=== PATIENT | female | born 1995 | race Caucasian/White ===

== ENCOUNTER 2017-05-03 10:27 | Emergency (ER) | payer OTHER ==
[2017-05-03] MEDS ORDERED: SODIUM CHLORIDE 0.9% 1,000 ML IV STA (10:46)
--- NOTE | 2017-05-03 11:02 | ED ---
Abdominal Pain HPI - General Chief Complaint: Abdominal Pain Stated Complaint: ABDOMINAL PAIN Time Seen by Provider: 05/03/17 10:39 Source: patient, RN notes reviewed Mode of arrival: ambulatory Limitations: no limitations - History of Present Illness Initial Comments: This is a 22-year-old female who presents with complaints of 3 days of abdominal pain. Sharp in nature 7/10 severity with some associated nausea. She states it's epigastric right and left upper quadrant and right lower quadrant also radiates to her back. She has any fevers chills sweats nausea vomiting other than nausea mentioned above. She denies any chance of she states her last menstrual period was April 19 and she did have a negative test yesterday. She has no dysuria no hematuria. No cough or phlegm production. The pain sometimes gets worse with movement and deep breathing. MD Complaint: abdominal pain - Related Data Home Medications Medication Instructions Recorded Confirmed Norgestimate-Ethinyl Estradiol 1 tab PO DAILY 05/03/17 05/03/17 [Ortho Tri-Cyclen 28 Tablet] Previous Rx's Medication Instructions Recorded Ketorolac [Toradol] 10 mg PO Q6HR #20 tab 05/03/17 Allergies Allergy/AdvReac Type Severity Reaction Status Date / Time No Known Allergies Allergy Verified 05/03/17 10:52 Review of Systems ROS Statement: Those systems with pertinent positive or pertinent negative responses have been documented in the HPI. ROS Other: All systems not noted in ROS Statement are negative. Past Medical History Past Medical History: No Reported History History of Any Multi-Drug Resistant Organisms: None Reported Past Surgical History: No Surgical Hx Reported Smoking Status: Never smoker Past Alcohol Use History: None Reported Past Drug Use History: None Reported General Exam - General Exam Comments Initial Comments: This is a well-developed well-nourished awake alert oriented 3 female Limitations: no limitations General appearance: alert, in no apparent distress Head exam: Present: atraumatic, normocephalic, normal inspection Eye exam: Present: normal appearance, PERRL, EOMI. Absent: scleral icterus, conjunctival injection, periorbital swelling ENT exam: Present: normal exam, mucous membranes moist Neck exam: Present: normal inspection. Absent: tenderness, meningismus, lymphadenopathy Respiratory exam: Present: normal lung sounds bilaterally. Absent: respiratory distress, wheezes, rales, rhonchi, stridor Cardiovascular Exam: Present: regular rate, normal rhythm, normal heart sounds. Absent: systolic murmur, diastolic murmur, rubs, gallop, clicks GI/Abdominal exam: Present: soft, tenderness (Right lower quadrant tenderness palpation no guarding or rebound however mild right upper quadrant epigastric tenderness palpation with no guarding or rebound.), normal bowel sounds. Absent : distended, guarding, rebound, rigid Rectal exam: Present: deferred Extremities exam: Present: normal inspection, full ROM, normal capillary refill. Absent: tenderness, pedal edema, joint swelling, calf tenderness Back exam: Present: normal inspection, CVA tenderness (R) (Mild right CVA tenderness to palpation/percussion) Neurological exam: Present: alert, oriented X3, CN II-XII intact Psychiatric exam: Present: normal affect, normal mood Skin exam: Present: warm, dry, intact, normal color. Absent: rash Course Vital Signs 05/03/17 05/03/17 10:36 12:15 Temperature 98.1 F 97.7 F Pulse Rate 79 85 Respiratory 18 16 Rate Blood Pressure 135/81 114/80 O2 Sat by Pulse 99 99 Oximetry - Reevaluation(s) Reevaluation #1: 05/03/17 12:46 Patient lab work is negative ultrasound is going to be ordered. She still has significant right lower quadrant pain more in the pelvis area however as opposed [place] point Medical Decision Making - Medical Decision Making The patient is showing improved at this time the presentation is consistent with a history of ovarian cyst patient will be discharged with follow-up with her doctor return when necessary she'll be placed on anti-inflammatory pain medication. - Lab Data Result diagrams: 05/03/17 11:00 05/03/17 11:00 Lab Results 05/03/17 05/03/17 05/03/17 Range/Units 10:58 10:58 11:00 WBC (4.0-11.0) k/uL RBC (3.80-5.40) m/uL Hgb (11.4-16.0) gm/dL Hct (34.0-46.0) % MCV (80.0-100.0) fL MCH (25.0-35.0) pg MCHC (31.0-37.0) g/dL RDW (11.5-15.5) % Plt Count (150-450) k/uL Neutrophils % % Lymphocytes % % Monocytes % % Eosinophils % % Basophils % % Neutrophils # (1.3-7.7) k/uL Lymphocytes # (1.0-4.8) k/uL Monocytes # (0-1.0) k/uL Eosinophils # (0-0.7) k/uL Basophils # (0-0.2) k/uL Manual Slide Review RBC Morphology Sodium 140 (137-145) mmol/L Potassium 4.3 (3.5-5.1) mmol/L Chloride 107 (98-107) mmol/L Carbon Dioxide 25 (22-30) mmol/L Anion Gap 8 mmol/L BUN 6 L (7-17) mg/dL Creatinine 0.73 (0.52-1.04) mg/dL Est GFR (MDRD) Af Amer >60 (>60 ml/min/1.73 sqM) Est GFR (MDRD) Non-Af >60 (>60 ml/min/1.73 sqM) Glucose 80 (74-99) mg/dL Calcium 9.5 (8.4-10.2) mg/dL Total Bilirubin 0.5 (0.2-1.3) mg/dL AST 21 (14-36) U/L ALT 30 (9-52) U/L Alkaline Phosphatase 43 (38-126) U/L Total Protein 7.1 (6.3-8.2) g/dL Albumin 4.3 (3.5-5.0) g/dL Amylase 39 (30-110) U/L Lipase 90 (23-300) U/L Urine Color Yellow Urine Appearance Clear (Clear) Urine pH 6.5 (5.0-8.0) Ur Specific [place] 1.009 (1.001-1.035) Urine Protein Negative (Negative) Urine Glucose (UA) Negative (Negative) Urine Ketones Negative (Negative) Urine Blood Trace H (Negative) Urine Nitrite Negative (Negative) Urine Bilirubin Negative (Negative) Urine Urobilinogen <2.0 (<2.0) mg/dL Ur Leukocyte Esterase Negative (Negative) Urine RBC <1 (0-5) /hpf Urine WBC 1 (0-5) /hpf Ur Squamous Epith Cells 3 (0-4) /hpf Urine Mucus Rare H (None) /hpf Urine HCG, Qual Not Detected (Not Detectd) 08/09/17 Range/Units 11:00 WBC 6.3 (4.0-11.0) k/uL RBC 4.40 (3.80-5.40) m/uL Hgb 14.8 (11.4-16.0) gm/dL Hct 41.3 (34.0-46.0) % MCV 93.9 (80.0-100.0) fL MCH 33.6 (25.0-35.0) pg MCHC 35.8 (31.0-37.0) g/dL RDW 12.3 (11.5-15.5) % Plt Count 265 (150-450) k/uL Neutrophils % 46 % Lymphocytes % 27 % Monocytes % 4 % Eosinophils % 20 % Basophils % 1 % Neutrophils # 2.9 (1.3-7.7) k/uL Lymphocytes # 1.7 (1.0-4.8) k/uL Monocytes # 0.3 (0-1.0) k/uL Eosinophils # 1.3 H (0-0.7) k/uL Basophils # 0.0 (0-0.2) k/uL Manual Slide Review Performed RBC Morphology Normal Sodium (137-145) mmol/L Potassium (3.5-5.1) mmol/L Chloride (98-107) mmol/L Carbon Dioxide (22-30) mmol/L Anion Gap mmol/L BUN (7-17) mg/dL Creatinine (0.52-1.04) mg/dL Est GFR (MDRD) Af Amer (>60 ml/min/1.73 sqM) Est GFR (MDRD) Non-Af (>60 ml/min/1.73 sqM) Glucose (74-99) mg/dL Calcium (8.4-10.2) mg/dL Total Bilirubin (0.2-1.3) mg/dL AST (14-36) U/L ALT (9-52) U/L Alkaline Phosphatase (38-126) U/L Total Protein (6.3-8.2) g/dL Albumin (3.5-5.0) g/dL Amylase (30-110) U/L Lipase (23-300) U/L Urine Color Urine Appearance (Clear) Urine pH (5.0-8.0) Ur Specific [place] (1.001-1.035) Urine Protein (Negative) Urine Glucose (UA) (Negative) Urine Ketones (Negative) Urine Blood (Negative) Urine Nitrite (Negative) Urine Bilirubin (Negative) Urine Urobilinogen (<2.0) mg/dL Ur Leukocyte Esterase (Negative) Urine RBC (0-5) /hpf Urine WBC (0-5) /hpf Ur Squamous Epith Cells (0-4) /hpf Urine Mucus (None) /hpf Urine HCG, Qual (Not Detectd) - Radiology Data Radiology results: report reviewed (I did review the imaging and reports x-ray shows no definite acute findings ultrasound shows normal appendix and some fluid in the right pelvis. The ovaries do appear to be within normal limits), image reviewed Disposition Clinical Impression: Abdominal pain, Ruptured ovarian cyst Disposition: HOME SELF-CARE Condition: Good Instructions: Abdominal Pain (ED), Ovarian Cyst (ED) Prescriptions: Ketorolac [Toradol] 10 mg PO Q6HR #20 tab Referrals: Hiram Pete DO [Primary Care Provider] - 1-2 days
[2017-05-03 11:15] LABS: Basophils % (A) 1 %; CH 32.9; CHCM 35.2; Eosinophils # (A) 1.3 k/uL (0-0.7); Eosinophils % (A) 20 %; HCT 41.3 % (34.0-46.0); HDW 2.61; HGB 14.8 gm/dL (11.4-16.0); Luc # (Auto) 0.12; Luc % (Auto) 2; Lymphocytes # (A) 1.7 k/uL (1.0-4.8); Lymphocytes % (A) 27 %; MCH 33.6 pg (25.0-35.0); MCHC 35.8 g/dL (31.0-37.0); MCV 93.9 fL (80.0-100.0); Mean Platelet Volume 7.2; Monocytes # (A) 0.3 k/uL (0-1.0); Monocytes % (A) 4 %; Neutrophils # (A) 2.9 k/uL (1.3-7.7); Neutrophils % (A) 46 %; RDW 12.3 % (11.5-15.5); WBC 6.3 k/uL (4.0-11.0); WBC (Perox) 6.25
[2017-05-03 11:41] LABS: ALT 30 U/L (9-52); AST 21 U/L (14-36); Alkaline Phosphatase 43 U/L (38-126); Amylase 39 U/L (30-110); Anion Gap 8 mmol/L; Blood Urea Nitrogen 6 mg/dL (7-17); Calcium 9.5 mg/dL (8.4-10.2); Carbon Dioxide 25 mmol/L (22-30); Chloride 107 mmol/L (98-107); Glucose 80 mg/dL (74-99); Non-African American GFR(MDRD) >60 (>60 ml/min/1.73 sqM); Potassium 4.3 mmol/L (3.5-5.1); Sodium 140 mmol/L (137-145); Total Bilirubin 0.5 mg/dL (0.2-1.3); Total Protein 7.1 g/dL (6.3-8.2)
[2017-05-03 11:53] LABS: Manual Review Performed
[2017-05-03 11:54] LABS: RBC Morphology Normal
[2017-05-03 12:02] LABS: Appearance,Urine Clear (Clear); Bilirubin,Urine Negative (Negative); Glucose,Urine (UA) Negative (Negative); Ketones,Urine Negative (Negative); Leukocyte Esterase,Urine Negative (Negative); Mucus,Urine Rare /hpf; Nitrite,Urine Negative (Negative); PH, Urine 6.5 (5.0-8.0); Particle Count 2968; Protein,Urine Negative (Negative); RBC,Urine <1 /hpf (0-5); Specific Gravity,Urine 1.009 (1.001-1.035); Squamous Epithelial Cell,Urine 3 /hpf (0-4); UA Billing (MACRO vs. MICRO) MICRO; Urobilinogen,Urine <2.0 mg/dL (<2.0); WBC,Urine 1 /hpf (0-5)
--- NOTE | 2017-05-03 12:06 | XR ---
EXAMINATION TYPE: XR KUB DATE OF EXAM: 05/03/2017 CLINICAL DATA: 22 year-old female with right-sided abdominal pain, PHH COMPARISON: None FINDINGS: Lung bases are clear. No evidence for free intraperitoneal air. No dilated small bowel or air-fluid levels. Scattered air and stool seen throughout the colon extendi ng distally into the rectum. Mild to moderate stool burden. No suspicious calcifications identified. IMPRESSION: Mild to moderate stool burden. No evidence of bowel obstruction or free intraperitoneal air.
[2017-05-03 12:16] VITALS: RESP 16
[2017-05-03] MEDS ORDERED: KETOROLAC 30 MG/ML 1 ML VIAL IVP STA (12:43)
--- NOTE | 2017-05-03 14:28 | US ---
EXAMINATION TYPE: US abdomen APPY DATE OF EXAM: 05/03/2017 COMPARISON: NONE CLINICAL HISTORY: 22 year-old female with Pain. RLQ pain since Monday. TECHNIQUE: Multiple sonographic images of the right lower quadrant were obtained with graded compress ion. FINDINGS: APPENDIX AP Diameter (normal < 6mm): 4.6 mm Measured outer wall to outer wall. Is the appendix seen in its entirety from the proximal cecum to distal end: Compressible tubular str ucture seen in the RLQ Is the appendix compressible: yes Does the appendix wall appear hypervascular: no Is an appendicolith present: no Is there inflammatory changes or free fluid present: no IMPRESSION: Normal sonographic appearance to the appendix. No evidence for acute appendicitis.
--- NOTE | 2017-05-03 14:31 | US ---
EXAMINATION TYPE: US transvaginal. Plus Dopplers DATE OF EXAM: 05/03/2017 COMPARISON: NONE CLINICAL HISTORY: 18-year-old female with Pain. RLQ pain since Monday Date of LMP: 04/19/2017, G0 TECHNIQUE: Transvaginal (TV). Color Doppler and spectral waveform analysis of the ovarian arteries a nd veins. Findings: Uterus: Anteverted measuring 6.5 x 4.1 x 3.1 cm Endometrial Stripe: 0.2 cm Right Ovary: 2.3 x 1.4 x 1.2 cm with follicular changes. Left Ovary: 2.4 x 1.5 x 1.0 cm with follicular changes. There is satisfactory arterial and venous flow seen on both sides. Small amount of right adnexal and cul-de-sac fluid. IMPRESSION: 1. No sonographic evidence for ovarian torsion. 2. Small amount of right adnexal and cul-de-sac free fluid likely physiologic.
[2017-05-03 15:31] VITALS: BP 108/64; PULSE 86; TEMP 98
== END 2017-05-03 15:25 | disposition home or self-care (01) ==
LOC: EC 10:27
DX: N83.209 Unspecified ovarian cyst, unspecified side (principal); R10.11 Right upper quadrant pain; R10.13 Epigastric pain; R11.0 Nausea; Z79.3 Long term (current) use of hormonal contraceptives
CPT/HCPCS: 36415; 80053; 82150; 83690; 85025; 81001; 81025; 74000; 93975; 76705; 76830; 99284; 96374; 96361 ×4; J1885

== ENCOUNTER → 2020-10-30 | Outpatient (CLI) | payer OTHER ==
--- NOTE | 2020-10-30 15:20 | US ---
EXAMINATION TYPE: Transabdominal DATE OF EXAM: 10/30/2020 3:05 PM COMPARISON: NONE CLINICAL HISTORY: Z36 Confirm dates. EXAM PERFORMED: Transabdominal (TA) EXAM MEASUREMENTS: GESTATIONAL AGE / DATING Physician Established: (12 weeks/0 days) EDC: 05/14/2021 Dates by LMP: (12 weeks/0 days) EDC: 05/14/2021 Dates by First Scan: This is 1st scan Dates by Current Scan for: (12 weeks/2 days) EDC: 05/12/2021 MATERNAL ANATOMY Uterus: 14.3 x 6.9 x 9.4cm Right Ovary: 2.8 x 1.6 x 2.2cm Left Ovary: 2.9 x 1.7 x 1.7cm Post CDS / Adnexa: wnl Presence of free fluid: no Presence of corpus luteal cyst: not seen Presence of subchorionic bleed: no GESTATION / SURVEY CRL: 5.8cm (12 weeks/2 days) Yolk Sac (normal less than 6mm): not seen Heart Rate: 160 bpm Rhythm: Normal IUP: Viable IUP Date of LMP: 08/07/2020 IMPRESSION: Single viable intrauterine noted.
== END | disposition home or self-care (01) ==
LOC: RADUSWWP 14:43
PROVIDERS: ATTEND Obstetrics & Gynecology
DX: Z36.87 Encounter for antenatal screening for uncertain dates (principal)
CPT/HCPCS: 76801

== ENCOUNTER 2021-05-12 06:00 | Inpatient (IN) | payer OTHER ==
--- NOTE | 2021-05-11 20:24 | P.HPOB ---
History of Present Illness H&P Date: 05/11/21 Chief Complaint: Induction of labor This is a 26 yo. female, 1, para 0, with an estimated date of confinement of 05/14/2021, estimated gestational age of 39-5/7 weeks, who presents for induction of labor. She is feeling irregular contractions and pressure. Her has been relatively uncomplicated. labs: Hepatitis B surface antigen-neg RPR-NR Rubella-immune Blood type-O+ Antibody screen-neg HIV-NR Hemoglobin-13.2 Random glucose-69 1 hr. 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 Social Hx: . Works in an Adult [employer]. Review of Systems Constitutional: Denies chills, Denies fever Eyes: denies blurred vision, denies pain Ears, nose, mouth and throat: Denies sore throat Cardiovascular: Denies chest pain, Denies shortness of breath Respiratory: Denies cough Gastrointestinal: Reports abdominal pain (irregular contractions), Denies diarrhea, Denies nausea, Denies vomiting Genitourinary: Reports pelvic pain, Reports Musculoskeletal: Reports low back pain Integumentary: Denies pruritus, Denies rash Neurological: Reports headaches (chronic), Denies numbness, Denies weakness Psychiatric: Denies anxiety, Denies depression Past Medical History Past Medical History: Asthma Additional Past Medical History / Comment(s): Gastritis History of Any Multi-Drug Resistant Organisms: None Reported Past Surgical History: No Surgical Hx Reported Additional Past Surgical History / Comment(s): [place] teeth Past Anesthesia/Blood Transfusion Reactions: No Reported Reaction Past Psychological History: No Psychological Hx Reported Smoking Status: Never smoker Past Alcohol Use History: None Reported Past Drug Use History: None Reported - Past Family History Father Family Medical History: Myocardial Infarction ([place]) Medications and Allergies Home Medications Medication Instructions Recorded Confirmed Type Albuterol Sulfate [Proair Hfa] 1 - 2 puff INHALATION Q6HR PRN 05/11/21 05/11/21 History Pnv No.95/Ferrous Fum/Folic AC 05/11/21 History [ Multivitamin Tablet] Allergies Allergy/AdvReac Type Severity Reaction Status Date / Time No Known Allergies Allergy Verified 05/03/17 10:52 Exam Osteopathic Statement: *. No significant issues noted on an osteopathic structural exam other than those noted in the History and Physical/Consult. HEENT: within normal limits Heart: regular rate and rhythm Lungs: clear to auscultation bilaterally Abdomen: Cervix: 2.5-3 cm/70%/-2 heart tones: 140's by doppler Extremities: neg. Peña's Assessment and Plan (1) 39 weeks gestation of Status: Acute Code(s): Z3A.39 - 39 WEEKS GESTATION OF SNOMED Code(s): 13894636 Plan: Admission for oxytocin induction of labor. Expectant management. Epidural anesthesia if desired.
[2021-05-12] MEDS ORDERED: LIDOCAINE 1% (10MG/ML) FOR IV START INTRADERMA PRN (06:09)
[2021-05-12] MEDS ORDERED: LIDOCAINE 0.5% (PF) 5 MG/ML (50 ML SDV) SQ PRN (06:09)
[2021-05-12] MEDS ORDERED: OXYTOCIN 30 UNITS/500 ML NS 30 UNIT in SALINE 1 500ML.BAG IV SCH ×2 (06:09→17:45)
[2021-05-12] MEDS ORDERED: TERBUTALINE 1 MG/ML VIAL SQ PRN (06:09)
[2021-05-12] MEDS ORDERED: CARBOPROST TROMETHAMINE 250 MCG/ML 1 ML AMP IM PRN (06:09)
[2021-05-12] MEDS ORDERED: METHYLERGONOVINE 0.2 MG/ML 1 ML AMP IM PRN (06:09)
[2021-05-12] MEDS ORDERED: OXYTOCIN 10 UNIT/ML 1 ML VIAL IM PRN (06:09)
[2021-05-12] MEDS: LACTATED RINGERS 1,000 ML IV SCH ×2 (06:15→11:33)
[2021-05-12 06:45] LABS: Basophils % (A) 0 %; Eosinophils # (A) 0.2 k/uL (0-0.7); Eosinophils % (A) 3 %; HCT 36.4 % (34.0-46.0); HGB 12.4 gm/dL (11.4-16.0); Lymphocytes % (A) 24 %; MCH 31.8 pg (25.0-35.0); MCHC 33.9 g/dL (31.0-37.0); MCV 93.8 fL (80.0-100.0); Mean Platelet Volume 9.7; Monocytes # (A) 0.5 k/uL (0-1.0); Monocytes % (A) 6 %; Neutrophils # (A) 5.7 k/uL (1.3-7.7); Neutrophils % (A) 65 %; Platelet Count 240 k/uL (150-450); Poikilocytosis Slight; RBC 3.89 m/uL (3.80-5.40); RDW 14.4 % (11.5-15.5); WBC 8.7 k/uL (3.8-10.6)
[2021-05-12] MEDS: BUTORPHANOL 1 MG/ML 1 ML VIAL IV PRN ×2 (11:30→13:34)
--- NOTE | 2021-05-12 17:20 | P.PROBDLV ---
Vaginal Delivery Note - . Vaginal Delivery Note: The patient progressed to complete dilation after oxytocin induction of labor and artificial rupture of membranes with thin meconium noted. She did receive 2 doses of Stadol while in labor. Once reaching complete, she began pushing. Infant's head came to a crown. With one further push, the 's head delivered across the perineum and a left occiput anterior lie followed by the posterior arm with a nuchal hand. The anterior shoulder then delivered shortly afterwards. Nose and mouth were bulb suctioned. Cord was clamped and cut and was handed to awaiting nursing staff and pediatric's care. A viable male infant is noted with scores of 8 at 1 minute and 9 at 5 minutes and weight of 8 lbs. 9 oz. Placenta delivered shortly thereafter, intact, with a three-vessel cord. Uterus contracted well after oxytocin was given and uterine massage was carried out. Inspection of the perineum revealed a second-degree perineal laceration with a slight extension onto the vaginal wall on the left and right side. These areas were anesthetized with 1% lidocaine and then sutured with 30 and 2-0 Vicryl suture in the usual multilayer fashion. Estimated blood loss is approximately 200 mL's. Both mother and are in stable condition.
[2021-05-12] MEDS ORDERED: ALBUTEROL NEBULIZED 2.5 MG/3 ML INHALATION PRN (17:35)
[2021-05-12] MEDS ORDERED: diphenhydrAMINE 50 MG CAP PO PRN (17:35)
[2021-05-12] MEDS ORDERED: SIMETHICONE 80 MG CHEWABLE PO PRN (17:35)
[2021-05-12] MEDS ORDERED: LANOLIN CREAM 5 GM TUBE TOPICAL PRN (17:35)
[2021-05-12] MEDS ORDERED: BENZOCAINE/MENTHOL SPRAY 1 GM/SPRAY AEROSOL TOPICAL PRN (17:35)
[2021-05-12] MEDS ORDERED: ZOLPIDEM 5 MG TAB PO PRN (17:35)
[2021-05-12] MEDS ORDERED: diphenhydrAMINE 25 MG CAP PO PRN (17:35)
[2021-05-12] MEDS ORDERED: HYDROCORTISONE 2.5% RECTAL CREAM 30 GM TUBE RECTAL PRN (17:35)
[2021-05-12] MEDS ORDERED: diphenhydrAMINE 50 MG/ML 1 ML VIAL IVP PRN ×2 (17:35)
[2021-05-12] MEDS: IBUPROFEN 600 MG TAB PO PRN (18:03)
[2021-05-12] MEDS: SENNOSIDES-DOCUSATE SODIUM 1 EACH TAB PO SCH (20:07)
[2021-05-12] MEDS: ACETAMINOPHEN TAB 325 MG TAB PO PRN (20:07)
[2021-05-13] MEDS: IBUPROFEN 600 MG TAB PO PRN ×3 (02:00→14:25)
[2021-05-13] MEDS: SENNOSIDES-DOCUSATE SODIUM 1 EACH TAB PO SCH (07:55)
[2021-05-13 08:10] VITALS: RESP 17
[2021-05-13 08:13] LABS: Basophils % (A) 0 %; Eosinophils # (A) 0.1 k/uL (0-0.7); Eosinophils % (A) 1 %; HGB 10.8 gm/dL (11.4-16.0); Hypochromasia Slight; Lymphocytes # (A) 2.1 k/uL (1.0-4.8); Lymphocytes % (A) 15 %; MCH 32.3 pg (25.0-35.0); MCHC 33.6 g/dL (31.0-37.0); MCV 96.3 fL (80.0-100.0); Mean Platelet Volume 9.8; Monocytes # (A) 0.8 k/uL (0-1.0); Monocytes % (A) 6 %; Neutrophils # (A) 10.6 k/uL (1.3-7.7); Neutrophils % (A) 76 %; Platelet Count 189 k/uL (150-450); Poikilocytosis Slight; RBC 3.32 m/uL (3.80-5.40); RDW 14.6 % (11.5-15.5); WBC 13.9 k/uL (3.8-10.6)
--- NOTE | 2021-05-13 08:43 | P.DS ---
Providers Date of admission: 05/12/21 06:02 Expected date of discharge: 05/13/21 Attending physician: Joi Salinas Primary care physician: Stated None - Discharge Diagnosis(es) (1) 39 weeks gestation of Current Visit: No Status: Acute Hospital Course: This is a 26-year-old female 1 para 0 at 39-5/7 weeks who presents for induction of labor. She underwent artificial rupture membranes with thin meconium noted. She delivered vaginally a viable male with scores of 8 at 1 minute and 9 at 5 minutes and weight of 8 lbs. 9 oz. Her course has been uncomplicated. She is breast-feeding. Lochia is decreasing. Her pain is well-controlled. Vital signs are stable. Abdomen is soft with fundus firm and nontender. Extremities show negative Homans. Impression is status post vaginal delivery day #1. Plan is to discharge home today. Routine instructions are given. She is advised to follow up in the office in 6 weeks for a check. She is advised to call the office if she has any further questions or concerns prior to her appointment time. Procedures: Oxytocin induction of labor Spontaneous vaginal delivery of a viable male infant on 05/12/2021 Patient Condition at Discharge: Stable Plan - Discharge Summary New Discharge Prescriptions: New Ibuprofen [Motrin] 600 mg PO Q6HR PRN #60 tab PRN Reason: Mild Pain (Scale 1 To 3) Continue Albuterol Sulfate [Proair Hfa] 1 - 2 puff INHALATION Q6HR PRN PRN Reason: Wheezing Pnv No.95/Ferrous Fum/Folic AC [ Multivitamin Tablet] 1 tab PO ONCE Discharge Medication List Albuterol Sulfate [Proair Hfa] 1 - 2 puff INHALATION Q6HR PRN 05/11/21 [History] Pnv No.95/Ferrous Fum/Folic AC [ Multivitamin Tablet] 1 tab PO ONCE 05/11/21 [History] Ibuprofen [Motrin] 600 mg PO Q6HR PRN #60 tab 05/13/21 [Rx] Follow up Appointment(s)/Referral(s): Joi Salinas DO [Doctor of Osteopathic Medicine] - 06/25/21 11:30 am Activity/Diet/Wound Care/Special Instructions: Instructions 1. Do not begin any exercise program for 3 weeks. 2. Do not resume sexual relations for 3 weeks or longer if uncomfortable. 3. You may take tub baths or showers at any time. 4. You may use tampons if desired after 3 weeks. 5. Keep the area of episiotomy (stitches) clean and dry. 6. If you are not nursing, wear a good fitting, supportive bra during the day and limit fluid intake for at least 1 week to prevent breast engorgement. 7. Call the office, [phone], within the next week to make appointment for your 6 week checkup if it has not already been made. 8. Report any of the following occurrences to the doctor promptly: a. Heavy, excessive bleeding b. Chills, fever c. Burning or frequency of urination d. Pain or redness and breasts if nursing e. Increasing pain or swelling in episiotomy (stitches). In addition to the above instructions, the following additional should be followed: 1. No heavy lifting or straining (exercising) until after 6 week checkup. 2. Keep abdominal incision clean and dry: You may wear a dressing if more comfortable. 3. Make office appointment for 10 days after going home or as instructed by her doctor. Discharge Disposition: HOME SELF-CARE
[2021-05-13] MEDS ORDERED: PRENATAL VIT-IRON-FOLIC ACID 1 EACH CAP PO SCH (09:00)
[2021-05-13] MEDS: ACETAMINOPHEN TAB 325 MG TAB PO PRN (11:01)
[2021-05-13 17:00] VITALS: BP 112/67; PULSE 75; TEMP 97.9
== END 2021-05-13 18:38 | disposition home or self-care (01) | DRG 807 ==
LOC: 4FBP 06:02
PROVIDERS: ADMIT Obstetrics & Gynecology; ATTEND Obstetrics & Gynecology
PROC: 0KQM0ZZ Repair Perineum Muscle, Open Approach (ICD-10-PCS; principal; 2021-05-12)
PROC: 10E0XZZ Delivery of Products of Conception, External Approach (ICD-10-PCS; 2021-05-12)
PROC: 3E033VJ Introduction of Other Hormone into Peripheral Vein, Percutaneous Approach (ICD-10-PCS; 2021-05-12)
PROC: 10907ZC Drainage of Amniotic Fluid, Therapeutic from Products of Conception, Via Natural or Artificial Opening (ICD-10-PCS; 2021-05-12)
DX: O70.1 Second degree perineal laceration during delivery (principal); Z37.0 Single live birth; O99.52 Diseases of the respiratory system complicating childbirth; J45.909 Unspecified asthma, uncomplicated; Z3A.39 39 weeks gestation of pregnancy; O77.0 Labor and delivery complicated by meconium in amniotic fluid; Z82.49 Family history of ischemic heart disease and other diseases of the circulatory system
CPT/HCPCS: 85025; 86850; 86900; 86901

== ENCOUNTER → 2021-06-30 | Outpatient (CLI) | payer OTHER | END | disposition home or self-care (01) | LOC: LABWHC1 12:48 | PROVIDERS: ATTEND Obstetrics & Gynecology | DX: N91.2 Amenorrhea, unspecified (principal) | CPT/HCPCS: 36415; 84702 ==

== ENCOUNTER 2023-06-05 10:05 | Emergency (ER) | payer BC, OTHER ==
[2023-06-05 10:29] VITALS: RESP 16; TEMP 98
--- NOTE | 2023-06-05 10:43 | ED ---
General Adult HPI - General Chief complaint: Vaginal Bleeding Stated complaint: 5 wks , bleeding Time Seen by Provider: 06/05/23 10:31 Source: patient Mode of arrival: ambulatory Limitations: no limitations - History of Present Illness Initial comments: The patient is a 28-year-old female with one previous full-term vaginal delivery without complication, presents emergency room for vaginal bleeding that started last night in the middle the night. She described it as a moderate dark bleeding that has since eased off. Patient denies any nausea, vomiting, dysuria, hematuria, fevers or other concerning symptoms. She has not seen an OB at this time. She is a nonsmoker and denies any other ongoing medical conditions. Patient's last menstrual period was April 28. Estimated to date of February 05. - Related Data Home Medications Medication Instructions Recorded Confirmed Albuterol Sulfate [Proair Hfa] 1 - 2 puff INHALATION Q6HR PRN 05/11/21 05/11/21 Pnv No.95/Ferrous Fum/Folic AC 1 tab PO ONCE 05/11/21 05/12/21 [ Multivitamin Tablet] Previous Rx's Medication Instructions Recorded Ibuprofen [Motrin] 600 mg PO Q6HR PRN #60 tab 05/13/21 Allergies Allergy/AdvReac Type Severity Reaction Status Date / Time No Known Allergies Allergy Verified 06/05/23 10:27 Review of Systems ROS Statement: Those systems with pertinent positive or pertinent negative responses have been documented in the HPI. ROS Other: All systems not noted in ROS Statement are negative. Past Medical History Past Medical History: Asthma Additional Past Medical History / Comment(s): Gastritis History of Any Multi-Drug Resistant Organisms: None Reported Past Surgical History: No Surgical Hx Reported Additional Past Surgical History / Comment(s): [place] teeth Past Anesthesia/Blood Transfusion Reactions: No Reported Reaction Past Psychological History: No Psychological Hx Reported Smoking Status: Never smoker Past Alcohol Use History: None Reported Past Drug Use History: None Reported - Past Family History Father Family Medical History: Myocardial Infarction ([place]) General Exam Limitations: no limitations Course Vital Signs 06/05/23 10:27 Temperature 98 F Pulse Rate 93 Respiratory 16 Rate Blood Pressure 134/64 O2 Sat by Pulse 100 Oximetry - Reevaluation(s) Reevaluation #1: 06/05/23 13:31 Patient's of pain in the emergency room. I discussed lab results and ultrasound results of patient. There is fluid in the uterus without any obvious intrauterine at this time. Her hCG Quant is 360. She is O+ therefore no RhoGAM was given at today's visit. I discussed with her that she will need serial hCG Quant's to see if this is a progressing or whether this is a incomplete versus ectopic. I discussed signs return to the emergency room including but not limited to any worsening pain, heavy bleeding, syncope, near syncope, abdominal pain with fevers or new concerning symptoms. The patient understands and agrees to this plan. Medical Decision Making - Medical Decision Making Was pt. sent in by a medical professional or institution (, PA, [employer], urgent care, hospital, or [facility]...) When possible be specific @ -[No] Did you speak to anyone other than the patient for history (EMS, parent, family, police, friend...)? What history was obtained from this source @ -[No] Did you review nursing and triage notes (agree or disagree)? Why? @ -[I reviewed and agree with nursing and triage notes] Were old charts reviewed (outside hosp., previous admission, EMS record, old EKG, old radiological studies, urgent care reports/EKG's, [facility] records)? Report findings @ -[No old charts were reviewed] Differential Diagnosis (chest pain, altered mental status, abdominal pain women, abdominal pain men, vaginal bleeding, weakness, fever, dyspnea, syncope, headache, dizziness, GI bleed, back pain, seizure, CVA, palpatations, mental health, musculoskeletal)? @ -Vaginal bleeding in , threatened , incomplete , ectopic EKG interpreted by me (3pts min.). @ -[As above] X-rays interpreted by me (1pt min.). @ -[None done] CT interpreted by me (1pt min.). @ -[None done] U/S interpreted by me (1pt. min.). @ -nO obvious mass, no obvious intrauterine seen however radiology report pending for confirmation of acute changes. What testing was considered but not performed or refused? (CT, X-rays, U/S, l abs)? Why? @ -[None] What meds were considered but not given or refused? Why? @ -[None] Did you discuss the management of the patient with other professionals (professionals i.e. , PA, [employer], lab, RT, psych nurse, social services coordinator, bleach analyst, teacher, landing signal officer, rn field case manager)? Give summary @ -Discussed patient's symptoms are And management with attending ED physician Dr. Ratliff today Was smoking cessation discussed for >3mins.? @ -[No] Was critical care preformed (if so, how long)? @ -[No] Were there social determinants of health that impacted care today? How? (Homelessness, low income, unemployed, alcoholism, drug addiction, transportation, low edu. Level, literacy, decrease access to med. care, alf, rehab)? @ -[No] Was there de-escalation of care discussed even if they declined (Discuss DNR or withdrawal of care, Hospice)? DNR status @ -[No] What co-morbidities impacted this encounter? (DM, HTN, Smoking, COPD, CAD, Cancer, CVA, ARF, Chemo, Hep., AIDS, mental health diagnosis, sleep apnea, morbid obesity)? @ -[None] Was patient admitted / discharged? Hospital course, mention meds given and route, prescriptions, significant lab abnormalities, going to OR and other pertinent info. @ -Patient will be discharged home. She may follow up with outpatient OB or return to the ED for serial hCG quadrants. There is no indication that hospitalization is required at this time. Patient is stable with no excessive bleeding she has a stable hemoglobin and vital signs are stable. Undiagnosed new problem with uncertain prognosis? @ -yes Drug Therapy requiring intensive monitoring for toxicity (Heparin, Nitro, Insulin, Cardizem)? @ -[No] Were any procedures done? @ -[No] Diagnosis/symptom? @ -Threatened Acute, or Chronic, or Acute on Chronic? @ -Acute Uncomplicated (without systemic symptoms) or Complicated (systemic symptoms)? @ -[default] Side effects of treatment? @ -[No] Exacerbation, Progression, or Severe Exacerbation? @ -[No] Poses a threat to life or bodily function? How? (Chest pain, [place], [place], pneumonia, PE, COPD, DKA, ARF, appy, cholecystitis, CVA, Diverticulitis, Homicidal, Suicidal, threat to staff... and all critical care pts) @ -[No] - Lab Data Result diagrams: 06/05/23 11:41 06/05/23 11:41 Lab Results 06/05/23 06/05/23 06/05/23 Range/Units 11:30 11:41 11:41 WBC 5.4 (3.8-10.6) k/uL RBC 4.39 (3.80-5.40) m/uL Hgb 14.5 (11.4-16.0) gm/dL Hct 42.2 (34.0-46.0) % MCV 96.1 (80.0-100.0) fL MCH 33.1 (25.0-35.0) pg MCHC 34.5 (31.0-37.0) g/dL RDW 12.2 (11.5-15.5) % Plt Count 214 (150-450) k/uL MPV 8.5 Neutrophils % 63 % Lymphocytes % 23 % Monocytes % 7 % Eosinophils % 5 % Basophils % 0 % Neutrophils # 3.4 (1.3-7.7) k/uL Lymphocytes # 1.3 (1.0-4.8) k/uL Monocytes # 0.4 (0-1.0) k/uL Eosinophils # 0.3 (0-0.7) k/uL Basophils # 0.0 (0-0.2) k/uL Sodium 140 (137-145) mmol/L Potassium 4.5 (3.5-5.1) mmol/L Chloride 106 (98-107) mmol/L Carbon Dioxide 26 (22-30) mmol/L Anion Gap 8 mmol/L BUN 10 (7-17) mg/dL Creatinine 0.69 (0.52-1.04) mg/dL Est GFR (CKD-EPI)AfAm >90 (>60 ml/min/1.73 sqM) Est GFR (CKD-EPI)NonAf >90 (>60 ml/min/1.73 sqM) Glucose 84 (74-99) mg/dL Calcium 9.5 (8.4-10.2) mg/dL Total Bilirubin 0.8 (0.2-1.3) mg/dL AST 29 (14-36) U/L ALT 24 (4-34) U/L Alkaline Phosphatase 67 (38-126) U/L Total Protein 8.0 (6.3-8.2) g/dL Albumin 5.0 (3.5-5.0) g/dL HCG, Quant 358.7 mIU/mL Urine Color Urine Appearance (Clear) Urine pH (5.0-8.0) Ur Specific [place] (1.001-1.035) Urine Protein (Negative) Urine Glucose (UA) (Negative) Urine Ketones (Negative) Urine Blood (Negative) Urine Nitrite (Negative) Urine Bilirubin (Negative) Urine Urobilinogen (<2.0) mg/dL Ur Leukocyte Esterase (Negative) Urine WBC (0-5) /hpf Ur Squamous Epith Cells (0-4) /hpf Amorphous Sediment (None) /hpf Urine Mucus (None) /hpf Blood Type O Positive Blood Type Recheck O Pos Bld Type Recheck Status No 06/05/23 Range/Units 11:47 WBC (3.8-10.6) k/uL RBC (3.80-5.40) m/uL Hgb (11.4-16.0) gm/dL Hct (34.0-46.0) % MCV (80.0-100.0) fL MCH (25.0-35.0) pg MCHC (31.0-37.0) g/dL RDW (11.5-15.5) % Plt Count (150-450) k/uL MPV Neutrophils % % Lymphocytes % % Monocytes % % Eosinophils % % Basophils % % Neutrophils # (1.3-7.7) k/uL Lymphocytes # (1.0-4.8) k/uL Monocytes # (0-1.0) k/uL Eosinophils # (0-0.7) k/uL Basophils # (0-0.2) k/uL Sodium (137-145) mmol/L Potassium (3.5-5.1) mmol/L Chloride (98-107) mmol/L Carbon Dioxide (22-30) mmol/L Anion Gap mmol/L BUN (7-17) mg/dL Creatinine (0.52-1.04) mg/dL Est GFR (CKD-EPI)AfAm (>60 ml/min/1.73 sqM) Est GFR (CKD-EPI)NonAf (>60 ml/min/1.73 sqM) Glucose (74-99) mg/dL Calcium (8.4-10.2) mg/dL Total Bilirubin (0.2-1.3) mg/dL AST (14-36) U/L ALT (4-34) U/L Alkaline Phosphatase (38-126) U/L Total Protein (6.3-8.2) g/dL Albumin (3.5-5.0) g/dL HCG, Quant mIU/mL Urine Color Colorless Urine Appearance Cloudy H (Clear) Urine pH 7.5 (5.0-8.0) Ur Specific [place] 1.010 (1.001-1.035) Urine Protein Negative (Negative) Urine Glucose (UA) Negative (Negative) Urine Ketones Negative (Negative) Urine Blood Trace H (Negative) Urine Nitrite Negative (Negative) Urine Bilirubin Negative (Negative) Urine Urobilinogen <2.0 (<2.0) mg/dL Ur Leukocyte Esterase Negative (Negative) Urine WBC <1 (0-5) /hpf Ur Squamous Epith Cells <1 (0-4) /hpf Amorphous Sediment Rare H (None) /hpf Urine Mucus Rare H (None) /hpf Blood Type Blood Type Recheck Bld Type Recheck Status Disposition Clinical Impression: Threatened , Vaginal bleeding Disposition: HOME SELF-CARE Condition: Good Instructions (If sedation given, give patient instructions): Threatened Miscarriage (ED) Additional Instructions: Follow-up with OB, or return to the ED in 48-72 hours for repeat hCG Quant levels. Return for any heavy bleeding, dizziness or near passing out, abdominal pain with fevers or new concerning symptoms. HCG Quant level today 359. Is patient prescribed a controlled substance at d/c from ED?: No Referrals: Winston Arellano MD [Primary Care Provider] - 1-2 days Iraj Amezquita MD [STAFF PHYSICIAN] - 1-2 days Time of Disposition: 13:36 (d/c home with ob follow up in 48-72 hrs for serial hcg quant)
--- NOTE | 2023-06-05 11:18 | US ---
EXAMINATION TYPE: Transabdominal DATE OF EXAM: 06/05/2023 11:08 AM COMPARISON: NONE CLINICAL INDICATION: Female, 28 years old with history of vaginal bleeding early , cramping; vaginal bleeding since last night EXAM PERFORMED: Transabdominal (TA) EXAM MEASUREMENTS: GESTATIONAL AGE / DATING Physician Established: Not yet established Dates by LMP: (5 weeks/3 days) EDC: 02/02/24 Dates by First Scan: No previous this is first scan Dates by Current Scan for: No IUP seen at this time MATERNAL ANATOMY Uterus: 9.5 x 3.2 x 5.1cm - fluid within endometrium Right Ovary: 2.6 x 2.6 x 1.3cm Left Ovary: 2.4 x 1.1 x 1.1cm Post CDS / Adnexa: small amount of free fluid posterior cul-de-sac Presence of free fluid: yes Presence of corpus luteal cyst: yes, hypoechoic area right ovary = 1.9 x 1.2 x 1.6cm GESTATION / SURVEY IUP: No IUP seen at this time Date of LMP: 04/28/23 Beta HcG (if available): Not available at this time IMPRESSION: 1. Fluid is seen within the endometrium without intrauterine gestational sac. In the setting of a pos itive beta hCG several possibilities exist include normal early IUP, missed spontaneous as w ell as ectopic . Correlate clinically.
[2023-06-05 11:50] LABS: Basophils % (A) 0 %; Eosinophils # (A) 0.3 k/uL (0-0.7); Eosinophils % (A) 5 %; HCT 42.2 % (34.0-46.0); HGB 14.5 gm/dL (11.4-16.0); Lymphocytes # (A) 1.3 k/uL (1.0-4.8); Lymphocytes % (A) 23 %; MCH 33.1 pg (25.0-35.0); MCHC 34.5 g/dL (31.0-37.0); MCV 96.1 fL (80.0-100.0); Mean Platelet Volume 8.5; Monocytes # (A) 0.4 k/uL (0-1.0); Monocytes % (A) 7 %; Neutrophils # (A) 3.4 k/uL (1.3-7.7); Neutrophils % (A) 63 %; Platelet Count 214 k/uL (150-450); RBC 4.39 m/uL (3.80-5.40); RDW 12.2 % (11.5-15.5); WBC 5.4 k/uL (3.8-10.6)
[2023-06-05 12:00] LABS: Amorphous Sediment,Urine Rare /hpf; Appearance,Urine Cloudy (Clear); Bilirubin,Urine Negative (Negative); Blood,Urine Trace (Negative); Color,Urine Colorless; Glucose,Urine (UA) Negative (Negative); Ketones,Urine Negative (Negative); Leukocyte Esterase,Urine Negative (Negative); Mucus,Urine Rare /hpf; Nitrite,Urine Negative (Negative); PH, Urine 7.5 (5.0-8.0); Protein,Urine Negative (Negative); Squamous Epithelial Cell,Urine <1 /hpf (0-4); Urobilinogen,Urine <2.0 mg/dL (<2.0); WBC,Urine <1 /hpf (0-5)
[2023-06-05 12:00] LABS: ALT 24 U/L (4-34); AST 29 U/L (14-36); African American GFR (CKD) >90 (>60 ml/min/1.73 sqM); Alkaline Phosphatase 67 U/L (38-126); Anion Gap 8 mmol/L; Blood Urea Nitrogen 10 mg/dL (7-17); Calcium 9.5 mg/dL (8.4-10.2); Carbon Dioxide 26 mmol/L (22-30); Chloride 106 mmol/L (98-107); Glucose 84 mg/dL (74-99); Non-African American GFR(CKD) >90 (>60 ml/min/1.73 sqM); Potassium 4.5 mmol/L (3.5-5.1); Sodium 140 mmol/L (137-145); Total Bilirubin 0.8 mg/dL (0.2-1.3)
[2023-06-05 12:17] LABS: HCG,Quantitative Serum 358.7 mIU/mL
[2023-06-05 13:45] VITALS: BP 121/82; PULSE 77
== END 2023-06-05 13:45 | disposition home or self-care (01) ==
LOC: EC 10:05
DX: O20.0 Threatened abortion (principal); O99.511 Diseases of the respiratory system complicating pregnancy, first trimester; J45.909 Unspecified asthma, uncomplicated; Z79.899 Other long term (current) drug therapy; Z3A.01 Less than 8 weeks gestation of pregnancy
CPT/HCPCS: 36415; 76801; 80053; 81001; 84702; 85025; 86900; 86901; 99284

== ENCOUNTER 2024-07-01 06:00 | Inpatient (IN) | payer BC ==
[2024-07-01] MEDS ORDERED: METHYLERGONOVINE 0.2 MG/ML 1 ML AMP IM PRN (06:21)
[2024-07-01] MEDS ORDERED: OXYTOCIN 10 UNIT/ML 1 ML VIAL IM PRN (06:21)
[2024-07-01] MEDS ORDERED: TRANEXAMIC 1,000 MG/100ML-NACL 1,000 MG in EMPTY BAG 1 BAG IV PRN (06:21)
[2024-07-01] MEDS ORDERED: miSOPROStoL 200 MCG TAB PO PRN (06:21)
[2024-07-01] MEDS ORDERED: CARBOPROST TROMETHAMINE 250 MCG/ML 1 ML AMP IM PRN (06:21)
[2024-07-01] MEDS ORDERED: TERBUTALINE 1 MG/ML VIAL SQ PRN (06:21)
[2024-07-01] MEDS ORDERED: miSOPROStoL 200 MCG TAB RECTAL PRN (06:21)
[2024-07-01] MEDS: LACTATED RINGERS 1,000 ML IV SCH (06:25)
[2024-07-01] MEDS ORDERED: OXYTOCIN 30 UNITS/500 ML NS 30 UNIT in SALINE 1 500ML.BAG IV SCH (06:30)
[2024-07-01] MEDS: OXYTOCIN 30 UNITS/500 ML NS 30 UNIT in SALINE 1 500ML.BAG IV SCH (06:35)
[2024-07-01 06:37] LABS: Basophils % (A) 0 %; Eosinophils # (A) 0.2 k/uL (0-0.7); Eosinophils % (A) 3 %; HCT 35.8 % (34.0-46.0); HGB 12.4 gm/dL (11.4-16.0); Lymphocytes # (A) 1.9 k/uL (1.0-4.8); Lymphocytes % (A) 23 %; MCH 33.7 pg (25.0-35.0); MCHC 34.7 g/dL (31.0-37.0); MCV 97.1 fL (80.0-100.0); Mean Platelet Volume 7.8; Monocytes # (A) 0.5 k/uL (0-1.0); Monocytes % (A) 7 %; Neutrophils # (A) 5.2 k/uL (1.3-7.7); Neutrophils % (A) 64 %; Platelet Count 210 k/uL (150-450); RBC 3.69 m/uL (3.80-5.40); WBC 8.2 k/uL (3.8-10.6)
[2024-07-01] MEDS: NALBUPHINE 10 MG/ML (10 ML MDV) IV PRN (10:56)
[2024-07-01] MEDS ORDERED: SIMETHICONE 80 MG CHEWABLE PO PRN (15:25)
[2024-07-01] MEDS ORDERED: diphenhydrAMINE 25 MG CAP PO PRN (15:25)
[2024-07-01] MEDS ORDERED: LANOLIN CREAM 1 GM TUBE TOPICAL PRN (15:25)
[2024-07-01] MEDS ORDERED: diphenhydrAMINE 50 MG/ML 1 ML VIAL IVP PRN ×2 (15:25)
[2024-07-01] MEDS ORDERED: ZOLPIDEM 5 MG TAB PO PRN (15:25)
[2024-07-01] MEDS ORDERED: HYDROCORTISONE 2.5% RECTAL CREAM 30 GM TUBE RECTAL PRN (15:25)
[2024-07-01] MEDS ORDERED: BENZOCAINE/MENTHOL SPRAY 1 GM/SPRAY AEROSOL TOPICAL PRN (15:25)
[2024-07-01] MEDS ORDERED: diphenhydrAMINE 50 MG CAP PO PRN (15:25)
--- NOTE | 2024-07-01 15:25 | P.PROBDLV ---
Vaginal Delivery Note - . Vaginal Delivery Note: 29-year-old 2 para 1-0-0-1 at 39-5/7 weeks that presents to labor and delivery for induction of labor. Patient was admitted and Pitocin induction of labor was begun. Patient underwent amniotomy and clear fluid was obtained. Patient made progress through labor eventually coming uncomfortable and requesting Nubain x 1. Patient made good progress toward complete dilation. Once patient was noted to be completely dilated she began pushing and had a normal spontaneous vaginal delivery of a viable female in occiput anterior presentation with a compound right hand at 1506. Apgars of 8 and 9 at 1 and 5 minutes respectively. After 2-minute delay the umbilical cord was doubly clamped and cut, the placenta was delivered spontaneously intact with a three-vessel cord being noted. On inspection the patient's vaginal vault secondary midline laceration was appreciated. This was injected with lidocaine and repaired in the usual fashion with 3-0 Rapide. Hemostasis was appreciated after closure. Uterus is noted to be firm below the umbilicus. Spontaneous cry was noted at . All counts were noted to be correct x 2. Patient and infant tolerated delivery well and are resting comfortably.
--- NOTE | 2024-07-01 15:29 | P.HPOB ---
History of Present Illness H&P Date: 07/01/24 Chief Complaint: IUP at 39-5/7 weeks This is a 29-year-old 3 para 1-0-1-1 at 39-5/7 weeks that presents to labor and delivery for scheduled induction of labor. Patient has been receiving routine care with myself which is been essentially uncomplicated. Patient notes good movement, she did have contractions through the weekend but nothing regular. She denies loss of fluid or vaginal bleeding. On blood work this patient is a blood type of O+, rubella status immune, hepatitis B surface engine negative, HIV negative, RPR is nonreactive, grew beta strep culture is negative. Review of Systems Constitutional: Denies chills, Denies fatigue, Denies fever Ears, nose, mouth and throat: Denies headache Cardiovascular: Denies edema Respiratory: Denies dyspnea Gastrointestinal: Denies nausea, Denies vomiting Genitourinary: Reports Past Medical History Past Medical History: Asthma Additional Past Medical History / Comment(s): Gastritis History of Any Multi-Drug Resistant Organisms: None Reported Past Surgical History: No Surgical Hx Reported Additional Past Surgical History / Comment(s): [place] teeth Past Anesthesia/Blood Transfusion Reactions: No Reported Reaction Past Psychological History: No Psychological Hx Reported Smoking Status: Never smoker Past Alcohol Use History: None Reported Past Drug Use History: None Reported - Past Family History Father Family Medical History: Myocardial Infarction ([place]) Medications and Allergies Home Medications Medication Instructions Recorded Confirmed Type Pnv No.95/Ferrous Fum/Folic AC 1 tab PO ONCE 05/11/21 05/12/21 History [ Multivitamin Tablet] Aspirin [[place] Aspirin EC] 81 mg PO 07/01/24 History buPROPion XL [Wellbutrin XL] 150 mg PO DAILY 07/01/24 07/01/24 History Allergies Allergy/AdvReac Type Severity Reaction Status Date / Time No Known Allergies Allergy Verified 07/01/24 06:15 Exam Osteopathic Statement: *. No significant issues noted on an osteopathic structural exam other than those noted in the History and Physical/Consult. Vital Signs Temp Pulse Resp BP Pulse Ox 07/01/24 06:15 97.4 F L 102 H 15 120/63 98 Intake and Output 06/30/24 07/01/24 07/01/24 22:59 06:59 14:59 Other: Weight 90.718 kg Targeted physical exam is performed on this date, In general this is a well- nourished well-developed female in no acute distress, breathing is nonlabored, heart has a regular rate and rhythm, abdomen is noted to be gravid, on cervical exam she is 4/50/-2 station amniotomy was performed clear fluid was obtained. heart tones are noted to be category 1 and she is nitza every 4 minutes. Results Result Diagrams: 07/01/24 06:20 Abnormal Lab Results - Last 24 Hours (Table) 07/01/24 Range/Units 06:20 RBC 3.69 L (3.80-5.40) m/uL Assessment and Plan (1) Term Current Visit: Yes Status: Acute Code(s): Z34.90 - ENCNTR FOR SUPRVSN OF NORMAL , UNSP, UNSP TRIMESTER SNOMED Code(s): 81085520 Plan: Patient is admitted for Pitocin induction of labor, amniotomy is performed. Patient desires Nubain when appropriate. She declines epidural. Anticipate spontaneous vaginal delivery.
[2024-07-01] MEDS: IBUPROFEN 800 MG TAB PO SCH (15:40)
[2024-07-01] MEDS: LIDOCAINE 0.5% (PF) 5 MG/ML (50 ML SDV) SQ PRN (15:42)
[2024-07-01] MEDS: SENNOSIDES-DOCUSATE SODIUM 1 EACH TAB PO SCH (20:50)
[2024-07-01] MEDS: ACETAMINOPHEN TAB 500 MG TAB PO SCH (20:50)
[2024-07-02 08:12] VITALS: BP 103/66; PULSE 73; RESP 16; TEMP 97.6
--- NOTE | 2024-07-02 08:42 | P.DS ---
Providers Date of admission: 07/01/24 06:00 Expected date of discharge: 07/02/24 Attending physician: Becca Smith Primary care physician: Stated None - Discharge Diagnosis(es) (1) Term Current Visit: Yes Status: Acute (2) Status post normal vaginal delivery Current Visit: Yes Status: Acute (3) Obstetrical laceration, second degree Current Visit: Yes Status: Acute Hospital Course: This is a 29-year-old 3 now para 2-0-1-2 that presented to labor and delivery for induction of labor at 39-5/7 weeks. Patient been receiving routine care which has been essentially uncomplicated. Patient was admitted to labor and delivery and Pitocin induction of labor was begun. Patient underwent amniotomy and clear fluid was obtained. Patient did receive Nubain x 1 during delivery. Patient progressed to complete and began pushing and had a normal spontaneous vaginal delivery of a viable female at 1506, weight of 7 pounds 13.9 ounces. Apgars of 8 and 9 at 1 and 5 minutes respectively. Patient has done well . She is ambulating and voiding without difficulty. She is tolerating a regular diet without nausea or vomiting. Her lochia is minimal to moderate. She is breast-feeding. She would like discharge home at 24 hours Patient Condition at Discharge: Good Plan - Discharge Summary New Discharge Prescriptions: No Action buPROPion XL [Wellbutrin XL] 150 mg PO DAILY Aspirin [[place] Aspirin EC] 81 mg PO Pnv No.95/Ferrous Fum/Folic AC [ Multivitamin Tablet] 1 tab PO ONCE Discharge Medication List Pnv No.95/Ferrous Fum/Folic AC [ Multivitamin Tablet] 1 tab PO ONCE 05/11/21 [History] Aspirin [[place] Aspirin EC] 81 mg PO 07/01/24 [History] buPROPion XL [Wellbutrin XL] 150 mg PO DAILY 07/01/24 [History] Follow up Appointment(s)/Referral(s): Becca Smith DO [Doctor of Osteopathic Medicine] - 1 Week Patient Instructions/Handouts: Vaginal Delivery (DC), Vaginal Delivery (GEN) Activity/Diet/Wound Care/Special Instructions: No tub baths or intercourse until 6 weeks . [id number] ibuprofen 600 mg or 3 tablets every 6 hours as needed for pain. Patient is to call the office to make a routine visit for 6 weeks . Should she have any concerns prior to that she is urged to call the office. Discharge Disposition: HOME SELF-CARE
== END 2024-07-02 16:40 | disposition home or self-care (01) | DRG 807 ==
LOC: 4FBP 06:00
PROVIDERS: ADMIT Obstetrics & Gynecology Obstetrics; ATTEND Obstetrics & Gynecology Obstetrics
PROC: 10E0XZZ Delivery of Products of Conception, External Approach (ICD-10-PCS; principal; 2024-07-01)
PROC: 0KQM0ZZ Repair Perineum Muscle, Open Approach (ICD-10-PCS; 2024-07-01)
DX: O70.1 Second degree perineal laceration during delivery (principal); Z37.0 Single live birth; J45.909 Unspecified asthma, uncomplicated; O99.52 Diseases of the respiratory system complicating childbirth; Z3A.39 39 weeks gestation of pregnancy; Z79.899 Other long term (current) drug therapy
CPT/HCPCS: 85025; 86850; 86900; 86901